=== PATIENT | female | born 1975 | race Hispanic/Latino ===

== ENCOUNTER 2017-09-04 17:51 | Emergency (ER) | payer MEDICARE ==
[~2017-09-04] VITALS: Ht 170.2 cm; Wt 59.9 kg
--- NOTE | 2017-09-04 23:14 | Diagnostic Imaging Report ---
EXAM: CHEST 2 VIEWS, PA and lateral DATE: 09/04/2017 9:28 PM Time stamp on exam: 2154 hours INDICATION: Cough, fever COMPARISON: None FINDINGS: LINES/TUBES: None LUNGS: No consolidations or edema. PLEURA: No effusions or pneumothorax. HEART AND MEDIASTINUM: Normal size and contour. BONES AND SOFT TISSUES: No acute findings. IMPRESSION: No consolidative pneumonia. Signed by: Dr. Haydee Graham M.D. on 09/04/2017 11:11 PM
[2017-09-04] MEDS ORDERED: PENICILLIN G BENZATHINE LA 1.2 MU TBX IM STA (23:25)
[2017-09-04] MEDS ORDERED: PENICILLIN G BENZATHINE LA 1.2 MU TBX ONE (23:32)
== END 2017-09-04 23:57 | disposition home or self-care (01) ==
LOC: ER 17:51
DX: R50.9 Fever, unspecified (principal); R05 Cough; J02.0 Streptococcal pharyngitis
CPT/HCPCS: 71020; 83518; 87400; 99283; J0561